=== PATIENT | female | born 1975 | race Caucasian/White ===

== ENCOUNTER 2021-03-22 10:14 | Emergency (ER) | payer BC, SELFPAY ==
--- NOTE | 2021-03-22 10:17 | XR_ITS ---
WS: [id number] Exam: XR chest 1V portable [id number] Date/Time of Exam: 03/22/2021 10:18 AM Reason For Exam: cough No priors. Probable groundglass infiltrate in the left lower lobe. Remaining lung anderson are clear. No pneumotho rax or pleural effusion. Normal cardiomediastinal structures and regional bony elements. XR/XR chest 1V portable [id number] IMPRESSION: 1. Findings suspicious for groundglass infiltrate in the left base. This could represent chronic change or developing pneumonia.
[2021-03-22 11:21] VITALS: BP 155/100; PULSE 101; RESP 24; TEMP 39; O2SAT 96; BMI 45.7
--- NOTE | 2021-03-22 11:50 | ED_ITS ---
HPI - COVID General: Chief Complaint: Upper Respiratory Infection Stated Complaint: Covid sx: SOB/ cough, since Sept Time Seen by Provider: 03/22/21 11:49 Triage information: Has fever, cough or shortness of breath . No known COVID + exposure last 14 days History of Present Illness: MD complaint: has COVID symptoms COVID 19 common symptoms: positive fever(s), chills, cough, non-productive cough, dyspnea, fatigue, body aches and nasal congestion; negative nausea, vomiting or diarrhea COVID 19 other sytmptoms: negative chest pain or requiring oxygen Onset (ago): day(s) Severity: mild Pertinent comorbid conditions: obesity Treatment prior to arrival: none COVID Results: SARS-CoV-2 Antigen (Rapid) Positive (Negative) H 03/22/21 12:15 03/22/21 Review of Systems Const: Reports: fever(s), chills, body aches and fatigue ENMT: Reports: nasal congestion Card: Denies: chest pain, edema, dyspnea on exertion or orthopnea Resp: Reports: dyspnea and non-productive cough GI: Denies: abdominal pain, nausea, vomiting, hematemesis, coffee ground emesis, diarrhea, constipation, bloating, hematochezia or melena : Denies: flank pain, difficulty voiding, dysuria, urinary frequency or uri nary urgency Skin/Breast: Denies: rash or pruritus Physical Exam Const: COMMON NORMALS: no acute distress GENERAL APPEARANCE: cooperative and comfortable ORIENTATION/CONSCIOUSNESS: Yes awake, Yes oriented to person, Yes oriented to place and Yes oriented to time HENMT: COMMON NORMALS: normocephalic, atraumatic and hearing grossly normal bilaterally HEAD & SCALP: normocephalic and atraumatic Resp: COMMON NORMALS: normal respiratory effort, No retractions and No use of accessory muscles AUSCULTATION: wheezes Cardio: COMMON NORMALS: regular rate, regular rhythm and No murmurs present (Cardio) RATE: regular rate RHYTHM: regular rhythm GI: COMMON NORMALS: Soft to palpation and No hepatosplenomegaly present AUSCULTATION: Yes normoactive bowel sounds PALPATION: Yes Soft to palpation, No Tenderness to palpation present (GI), No Guarding due to palpation present (GI) and Yes No hepatosplenomegaly present Extremity: COMMON NORMALS: normal to inspection, capillary refill normal, no clubbing, cyanosis or edema, no calf tenderness and no pedal edema Neuro: SENSORIUM/ORIENTATION: Yes oriented to person, Yes oriented to place and Yes oriented to time Skin: COMMON NORMALS: no rashes or lesions noted GENERAL SKIN EXAM: no rashes or lesions noted Course Vital Signs: Vital signs: Vital Signs Temperature 102.2 F H 03/22/21 11:21 Pulse Rate 101 H 03/22/21 11:21 Respiratory Rate 20 H 03/22/21 12:10 Blood Pressure 151/88 03/22/21 12:10 Pulse Oximetry 94 03/22/21 12:10 MDM - COVID MDM Narrative: Medical decision making narrative: Labs imaging and EKG reviewed with the patient will discharge patient home. She is indeed Covid positive. She not requiring any oxygen support her sats are good on room air. I am going to put her on dexamethasone due to her history of reactive airway disease and her current wheezing. She has any worsening problems return. Monitor oxygen sats sat falls below 90 at rest return. Lab Data: Labs: Lab Results 03/22/21 03/22/21 03/22/21 12:15 12:15 12:15 WBC 5.9 10^3/uL 10^3/ uL (4.0-10.0) RBC 4.19 10^6/uL 10^6 /uL (4.1-5.3) Hgb 12.5 g/dL g/dL (11.5-15.3) Hct 38.4 % % (37.0-47.0) MCV 91.6 fl fl (81-99) MCH 29.8 pg pg (28.0-34.0) MCHC 32.6 g/dL g/dL (30.0-36.0) RDW 15.5 % H % (12.1-15.1) Plt Count 271 10^3/cmm 10^3 /cmm (130-400) MPV 10.9 fL H fL (7.4-10.4) Neut % (Auto) 81.1 % % Lymph % (Auto) 9.5 % % [place] % (Auto) 8.0 % % Eos % (Auto) 0.2 % % Baso % (Auto) 0.7 % % Neut # (Auto) 4.78 10^3/uL 10^3 /uL (1.8-7.7) Lymph # (Auto) 0.6 10^3/uL L 10^ 3/uL (0.8-4.8) [place] # (Auto) 0.5 10^3/uL 10^3/ uL (0.2-0.9) Eos # (Auto) 0.0 10^3/uL 10^3/ uL (0.0-0.8) Baso # (Auto) 0.0 10^3/uL 10^3/ uL (0.0-0.1) Nucleated RBC % (a uto) 0 % % Nucleated RBCs # 0.0 /100WBC /100W BC Sodium 138 mmol/L mmol/L (136-145) Potassium 4.1 mmol/L mmol/L (3.5-5.1) Chloride 102 mmol/L mmol/L (98-107) Carbon Dioxide 22 mmol/L mmol/L (22-29) Anion Gap 18.1 (5-19) BUN 8 mg/dL mg/dL (6-20) Creatinine 0.9 mg/dL mg/dL (0.5-0.9) GFR Calculation 66.8 mL/min L mL/ min (90-130) Glucose 101 mg/dL mg/dL (65-115) Calculated Osmolal ity 284 mOsm/kg L mOs m/kg (285-295) Calcium 8.8 mg/dL mg/dL (8.5-10.5) Total Bilirubin 0.2 mg/dL mg/dL (0.15-1.2) AST 29 U/L U/L (0-32) ALT 35 U/L H U/L (0-33) Alkaline Phosphata se 87 IU/L IU/L (35-105) C-Reactive Protein 25.1 mg/L H mg/L (0.0-4.9) Total Protein 7.3 g/dL g/dL (6.6-8.7) Albumin 4.4 g/dL g/dL (3.5-5.2) Globulin 2.9 g/dL g/dL (1.3-4.6) Procalcitonin 0.10 ng/mL ng/mL (0-0.5) SARS-CoV-2 Ag (Rap id) Positive H (Negative) COVID Results: SARS-CoV-2 Antigen (Rapid) Positive (Negative) H 03/22/21 12:15 03/22/21 Discharge Plan Discharge Patient Disposition: Home Condition: Stable Prescriptions: New dexamethasone 6 mg tablet 6 mg PO DAILY Qty: 7 RF: 0 No Action ipratropium-albuterol 0.5 mg-3 mg(2.5 mg base)/3 mL solution for nebulization 3 ml INHALATION Q6H PRN (Reason: Shortness Of Breath) RF: 0 Aimovig Autoinjector 140 mg/mL auto-injector 140 mg SUBCUT Q28D RF: 0 Discharge Orders: Discharge ED (Routine); Ordered 03/22/21 Ordered By: Sukhdeep Ceron Referrals: Romario Loo DO [Primary Care Provider] - Discharge Diet: Usual diet Discharge Activity: Increase activity as tolerated Patient Instructions: Opioid Safety Activity Restrictions/Additional Instructions: Case management will call to make arrangements for you to receive monoclonal antibody infusion. Coding Level of Care Code ED Sql Report Developer for Jaswinder Fwd Exam Detailed
--- NOTE | 2021-03-22 12:05 | CT_ITS ---
WS: [id number] Exam: CT angio chest PE protcl [id number] Date/Time of Exam: 03/22/2021 2:08 PM Reason For Exam: chest pain cough/dyspnea DLP: 1192.[address] scans at [facility] use at least one of these dose optimization techniques: automated e xposure control; mA and/or kV adjustment per patient size (includes targeted exams where dose is matc hed to clinical indication); or iterative reconstruction. The central and lobar pulmonary arteries show no sign of acute emboli. The more distal pulmonary yue tami are not optimally opacified for detailed evaluation. The lungs are fully expanded and clear. The airway is patent. The thoracic aorta is normal in caliber. No mediastinal or hilar lymphadenopathy. No pleural or pericardial effusion. CT sections the upper abdomen demonstrate hepatic steatosis. No d estructive bone lesions are chest wall defects. CT/CT angio chest PE protcl [id number] IMPRESSION: 1. The central and lobar pulmonary arteries show no evidence of acute emboli. T he more distal pulmonary arterial branches are not optimally opacified for accu rate evaluation. 2. The lungs are clear. No indication of infiltrate, mass or adenopathy in the chest.
[2021-03-22 12:10] VITALS: BP 151/88; RESP 20; O2SAT 94
[2021-03-22 12:36] LABS: Basophils % 0.7 %; Eosinophils % 0.2 %; Hematocrit 38.4 % (37.0-47.0); Hemoglobin 12.5 g/dL (11.5-15.3); Lymphocytes # 0.6 10^3/uL (0.8-4.8); Lymphocytes % 9.5 %; Mean Corpuscular HGB Conc 32.6 g/dL (30.0-36.0); Mean Corpuscular Hemoglobin 29.8 pg (28.0-34.0); Mean Corpuscular Volume 91.6 fl (81-99); Mean Platelet Volume 10.9 fL (7.4-10.4); Monocytes # 0.5 10^3/uL (0.2-0.9); Neutrophils # 4.78 10^3/uL (1.8-7.7); Neutrophils % 81.1 %; Nucleated Red Blood Cells % 0 %; Platelet Count 271 10^3/cmm (130-400); Red Blood Count 4.19 10^6/uL (4.1-5.3); Red Cell Distribution Width 15.5 % (12.1-15.1); White Blood Count 5.9 10^3/uL (4.0-10.0)
[2021-03-22 12:55] LABS: SARS Covid-2 Antigen Positive (Negative)
[2021-03-22 13:39] LABS: Alanine Aminotransferase 35 U/L (0-33); Albumin Level 4.4 g/dL (3.5-5.2); Alkaline Phosphatase 87 IU/L (35-105); Anion Gap 18.1 (5-19); Aspartate Amino Transferase 29 U/L (0-32); Blood Urea Nitrogen 8 mg/dL (6-20); C Reactive Protein 25.1 mg/L (0.0-4.9); Calcium 8.8 mg/dL (8.5-10.5); Carbon Dioxide 22 mmol/L (22-29); Chloride 102 mmol/L (98-107); Globulin 2.9 g/dL (1.3-4.6); Glomerular Filtration Rate 66.8 mL/min (90-130); Glucose 101 mg/dL (65-115); Osmolality Calculated 284 mOsm/kg (285-295); Potassium 4.1 mmol/L (3.5-5.1); Sodium 138 mmol/L (136-145); Total Bilirubin 0.2 mg/dL (0.15-1.2); Total Protein 7.3 g/dL (6.6-8.7)
[2021-03-22] MEDS: iohexol 350 mg/mL 100 mL Btl IV ×2 (14:20→14:25)
== END 2021-03-22 14:57 | disposition home or self-care (01) ==
PROVIDERS: Physician Assistant; Emergency Provider Family Medicine; PCP Electrodiagnostic Medicine
DX: U07.1 COVID-19 (principal)
CPT/HCPCS: 36415; 71045; 71275; 80053; 84145; 85025; 86140; 87040; 87426; 99283; Q9967

== ENCOUNTER 2024-06-11 12:51 | Outpatient (CLI) | payer BC, SELFPAY ==
--- NOTE | 2024-06-11 12:54 | XR_ITS ---
WS: [id number] DEXA (DUAL ENERGY X-RAY ABSORPTIOMETRY) Bone mineral density was performed using a [employer] machine. HISTORY: POSTMENOPAUSAL COMPARISON: None available. Lumbar spine BMD (L1-L4): 1.010 g/cm2 T score: -1.4 Z score: -0.8 Total hip BMD: Left: 0.850 g/cm2. T score: -1.3 Z score: -0.7 Right: 0.853 g/cm2. T score: -1.2 Z score: -0.6 10 year probability of a major osteoporotic fracture is 5.7%. XR/XR DEXA axial skeleton* [id number] IMPRESSION: OSTEOPENIA based upon the WHO classification for females.
--- NOTE | 2024-06-11 12:54 | MM_ITS ---
WS: [id number] Bilateral screening 3D tomosynthesis digital mammogram, 06/11/2024 12:57 PM Clinical Data: SCREENING Comparison: 06/15/2008. Findings: No spiculated masses or clustered calcifications are seen. There are no secondary signs of carcinoma. There is a dystrophic calcification in the left breast. Lymph nodes are present in both axilla. MM/MM scr BI tomosynthesis [id number] Impression: Negative bilateral mammogram unchanged. Recommend annual screening mammograms. BIRADS: 1 - Negative. FOLLOW UP: 1 Year Follow-up DENSITY: There are scattered areas of fibroglandular density. The CAD felt checker was used
== END 2024-06-11 12:52 | disposition home or self-care (01) ==
PROVIDERS: PCP Family Medicine; Visit Provider Electrodiagnostic Medicine
DX: Z12.31 Encounter for screening mammogram for malignant neoplasm of breast (principal); Z78.0 Asymptomatic menopausal state; R92.1 Mammographic calcification found on diagnostic imaging of breast; R59.0 Localized enlarged lymph nodes; R92.323 Mammographic fibroglandular density, bilateral breasts; M85.80 Other specified disorders of bone density and structure, unspecified site
CPT/HCPCS: 77063; 77067; 77080